=== PATIENT | female | born 1990 | race Caucasian/White ===

== ENCOUNTER 2023-02-17 15:30 | Emergency (ER) | payer BC ==
[~2023-02-17] VITALS: Ht 154.9 cm; Wt 64.4 kg
[2023-02-17 15:34] VITALS: BP 142/86
--- NOTE | 2023-02-17 15:38 | NUR ---
pt ambulatory to [facility] w steady gait.
[2023-02-17 16:18] LABS: BASOPHILS % (AUTO) 0.3 % (0.0-2.0); EOSINOPHILS # (AUTO) 0.1 K/uL (0-0.4); EOSINOPHILS % (AUTO) 0.5 % (0.0-4.0); HEMATOCRIT 40.9 % (36-48); HEMOGLOBIN 13.7 g/dL (12.0-16.0); LYMPHOCYTES # (AUTO) 2.2 K/uL (2.5-16.5); LYMPHOCYTES % (AUTO) 19.3 % (20.5-51.1); MEAN CORPUSCULAR HEMOGLOBIN 30 pg (27-31); MEAN CORPUSCULAR HGB CONC 33 g/dL (33-37); MEAN CORPUSCULAR VOLUME 88.3 fL (80-94); MONOCYTES # (AUTO) 0.6 K/uL (0.8-1.0); MONOCYTES % (AUTO) 5.2 % (1.7-9.3); NEUTROPHILS # (AUTO) 8.4 K/uL (1.8-7.7); NEUTROPHILS % (AUTO) 74.7 % (42.2-75.2); PLATELET COUNT (AUTO) 316 K/uL (140-450); RED BLOOD CELL COUNT(AUTO) 4.63 MIL/uL (4.20-5.40); RED CELL DISTRIBUTION WIDTH 13.3 % (11.6-13.7); WHITE BLOOD COUNT (AUTO) 11.3 K/uL (4.8-10.8)
--- NOTE | 2023-02-17 16:59 | NUR ---
PT RETURN FR U/S , SPOTTING , NO PAIN
--- NOTE | 2023-02-17 18:34 | NUR ---
Tommy nascimento in ED - 02/17/23 at 1836 by [email or web address] pt has been medicated per provider orders. Anitbiotics given per darius [email or web address]
[2023-02-17] MEDS ORDERED: ACET-10509 PO (18:35)
[2023-02-17 18:56] LABS: APPEARANCE,URINE CLEAR (CLEAR); BILIRUBIN,URINE NEGATIVE (NEGATIVE); BLOOD, URINE 1+ (NEGATIVE); COLOR,URINE YELLOW (YELLOW); LEUKOCYTE ESTERASE ,URINE TRACE (NEGATIVE); NITRITE, URINE NEGATIVE (NEGATIVE); PH,URINE 5.5 (5.0-9.0); UGLUCOSE NEGATIVE (NEGATIVE)
[2023-02-17 19:30] VITALS: BP 126/64
--- NOTE | 2023-02-17 19:30 | NUR ---
PT WAITING RESULTS FROM PROVIDER. RELEASED CARE TO [facility] @ [id number]
[2023-02-17 20:11] LABS: TRICHOMONAS,URINE None Seen /HPF (None Seen); YEAST,URINE None Seen /HPF (None Seen)
== END 2023-02-17 19:30 | disposition home or self-care (01) ==
LOC: MED 15:30
DX: O02.1 Missed abortion (principal); O26.891 Other specified pregnancy related conditions, first trimester; R03.0 Elevated blood-pressure reading, without diagnosis of hypertension; Z3A.08 8 weeks gestation of pregnancy; Z79.899 Other long term (current) drug therapy
CPT/HCPCS: 36415; 76817; 81001; 81025; 84702; 85025; 86900; 86901; 99284; Q0092

== ENCOUNTER 2023-12-20 10:41 | Emergency (ER) | payer BC ==
[~2023-12-20] VITALS: Ht 154.9 cm; Wt 69.4 kg
[~2023-12-20 10:41] MED LIST: ACET-10509 PO
[2023-12-20 10:45] VITALS: BP 141/87; PULSE 90; RESP 18; TEMP 97.5; O2SAT 97
[2023-12-20] MEDS: ACETAMINOPHEN EXTRA STRENGTH 500 MG TAB PO ONE (11:56)
[2023-12-20 12:03] LABS: APPEARANCE,URINE CLEAR (CLEAR); BILIRUBIN,URINE NEGATIVE (NEGATIVE); BLOOD, URINE NEGATIVE (NEGATIVE); COLOR,URINE YELLOW (YELLOW); LEUKOCYTE ESTERASE ,URINE TRACE (NEGATIVE); NITRITE, URINE NEGATIVE (NEGATIVE); PROTEIN,URINE NEGATIVE (NEGATIVE); UGLUCOSE NEGATIVE (NEGATIVE); UROBILINOGEN,URINE 0.2 EU/dL (0.2 - 1)
[2023-12-20 13:07] LABS: BACTERIA,URINE 1+ /HPF (None Seen); RBC,URINE 0 /HPF (0-5); SQUAMOUS EPITHELIAL CELL,UR 0-3 (FEW) /LPF (0-3 (FEW)); WBC,URINE 0-5 /HPF (0-5)
[2023-12-20 13:16] VITALS: BP 141/87; PULSE 90; RESP 18; TEMP 97.5; O2SAT 97
== END 2023-12-20 13:16 | disposition home or self-care (01) ==
LOC: MED 10:41
DX: O26.891 Other specified pregnancy related conditions, first trimester (principal); M54.50 Low back pain, unspecified; Z3A.01 Less than 8 weeks gestation of pregnancy; Z79.899 Other long term (current) drug therapy
CPT/HCPCS: 81001; 81025; 99282